=== PATIENT | male | born 1980 | race Asian ===

== ENCOUNTER 2021-02-24 08:28 | Day surgery (SDC) | payer OTHER, SELFPAY ==
[~2021-02-24] VITALS: Ht 167.6 cm; Wt 80.7 kg
[2021-02-24] MEDS ORDERED: ROCURONIUM BROMIDE 10 MG/ML (ZEMURON) IV ONE (09:35)
[2021-02-24] MEDS ORDERED: MIDAZOLAM HCL 5 MG/5 ML VIAL IVP ONE (09:35)
[2021-02-24] MEDS ORDERED: LIDOCAINE/EPI 1% 1:100000 20 ML VIAL INJ ONE (09:35)
[2021-02-24] MEDS ORDERED: LR 1,000 ML IV.SOLN IV ONE (09:35)
[2021-02-24] MEDS ORDERED: WATER FOR IRRIGATION,STERILE 1,000 ML IRRIG.SOLN IR ONE (09:35)
[2021-02-24] MEDS ORDERED: fentaNYL CITRATE 250 MCG/5 ML AMP IV ONE (09:35)
[2021-02-24] MEDS ORDERED: LIDOCAINE 2%, 20 ML MDV INJ ONE (09:35)
[2021-02-24] MEDS ORDERED: MUPIROCIN 2% TOPICAL OINTMENT 22 GM TP ONE (09:35)
[2021-02-24] MEDS ORDERED: NS IRRIG SOLN 1000 ML IR ONE (09:35)
[2021-02-24] MEDS ORDERED: EPINEPHrine 1 MG/ML VIAL IV ONE (09:35)
[2021-02-24] MEDS ORDERED: SUGAMMADEX SODIUM 200 MG/2 ML VIAL IV ONE (09:35)
[2021-02-24] MEDS ORDERED: DESFLURANE 15 MIN GAS INH ONE (09:35)
[2021-02-24] MEDS ORDERED: DEXAMETHASONE SOD PHOSPHATE 4 MG/ML VIAL IVP ONE (09:35)
[2021-02-24] MEDS ORDERED: ACETAMINOPHEN I.V. 1000 MG 100 ML IV ONE (09:45)
[2021-02-24] MEDS ORDERED: LABETALOL 100 MG/ 20ML VIAL IVP PRN (10:15)
[2021-02-24] MEDS ORDERED: MIDAZOLAM HCL 2 MG/2 ML VIAL (VERSED) IVP PRN (10:15)
[2021-02-24] MEDS ORDERED: HYDROmorphone 1 INJ. 1 MG/ML CARTRIDGE IVP PRN ×2 (10:15)
[2021-02-24] MEDS ORDERED: METOCLOPRAMIDE HCL 10 MG/2 ML VIAL IVP PRN (10:15)
[2021-02-24] MEDS ORDERED: ONDANSETRON HCL 4 MG/2 ML VIAL IVP PRN (10:15)
[2021-02-24] MEDS ORDERED: LR 1,000 ML IV SCH (10:15)
[2021-02-24] MEDS ORDERED: MEPERIDINE HCL/PF 25 MG/ML DISP.SYRIN IVP PRN (10:15)
[2021-02-24 14:29] VITALS: BP_SYST 141
== END 2021-02-24 13:30 | disposition home or self-care (01) ==
LOC: SDS 08:28 → SMU 08:31 → SDS 13:30
PROVIDERS: ATTEND Otolaryngology
DX: J34.89 Other specified disorders of nose and nasal sinuses (principal); D38.5 Neoplasm of uncertain behavior of other respiratory organs; J30.1 Allergic rhinitis due to pollen; J34.2 Deviated nasal septum; G47.33 Obstructive sleep apnea (adult) (pediatric); J32.9 Chronic sinusitis, unspecified; Z99.89 Dependence on other enabling machines and devices; Z79.899 Other long term (current) drug therapy; Z20.828 Contact with and (suspected) exposure to other viral communicable diseases
CPT/HCPCS: 30140; 30520; 31255; 31256; 88304; 88305; 88311; J0131; U0003; C9399; J0171; J1100; J2001; J2250; J3010; J7120